=== PATIENT | female | born 1940 | race Caucasian/White ===

== ENCOUNTER → 2017-01-30 | Outpatient (CLI) | payer MEDICARE, BC ==
--- NOTE | 2017-01-30 13:56 | XR ---
EXAMINATION TYPE: XR hand complete LT DATE OF EXAM: 01/30/2017 COMPARISON: NONE HISTORY: 76 year-old female left hand pain TECHNIQUE: 3 views FINDINGS: Severe degenerative changes at the first CMC joint with joint space narrowing, sclerosis, marginal sp urring, and slight radial and dorsal joint subluxation. Some slight scattered air spurring in the MP joints, particularly the second PIP joint. No marginal erosions. No acute fracture or dislocation. No soft tissue calcifications. 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 Some minimal scattered osteoarthritic javi nges within the fingers.
== END | disposition home or self-care (01) ==
LOC: RADXRMAIN 12:50
PROVIDERS: ATTEND Family Medicine
DX: M19.042 Primary osteoarthritis, left hand (principal)

== ENCOUNTER → 2017-11-06 | Outpatient (CLI) | payer MEDICARE, BC | END | disposition home or self-care (01) | LOC: RADUSWWP 13:36 | PROVIDERS: ATTEND Family Medicine | DX: I73.9 Peripheral vascular disease, unspecified (principal) | CPT/HCPCS: 93922 ==

== ENCOUNTER 2018-11-06 13:02 | Emergency (ER) | payer MEDICARE, BC ==
[2018-11-06 13:08] VITALS: TEMP 97.8
[2018-11-06] MEDS ORDERED: SODIUM CHLORIDE 0.9% 500 ML 500 ML IV STA (13:39)
--- NOTE | 2018-11-06 13:43 | ED ---
General Adult HPI - General Chief complaint: Neuro Symptoms/Deficit Stated complaint: vision trouble Time Seen by Provider: 11/06/18 13:05 Source: patient, RN notes reviewed Mode of arrival: wheelchair Limitations: no limitations - History of Present Illness Initial comments: This is a 78-year-old female presents emergency department with past medical h istory significant for diabetes. Patient states she will DeBellis at about 9:30 slightly feeling normal. Patient states she woke up at about 4:00 this morning and had double vision. Patient did not check to see if there is any facial droop at the time however she woke up later and continue to have some double vision as well as some drooping of the left upper eyelid. Patient denies any speech disturbance. Patient denies any other facial disturbance. Patient states her puzzlsna-gb-zof thought the left side of her face was also a little droopy but the patient denies this. Patient denies any weakness or numbness in any of the extremities. Patient denies any coordination breath. Patient denies any difficulty walking. Patient does complain of a posterior headache - Related Data Home Medications Medication Instructions Recorded Confirmed Ramipril [Altace] 2.5 mg PO DAILY 07/07/15 11/06/18 Simvastatin [Zocor] 20 mg PO DAILY 07/07/15 11/06/18 Insulin Glargine,Hum.rec.anlog 40 unit SQ DAILY 11/06/18 11/06/18 [Basaglar Kwikpen U-100] Allergies Allergy/AdvReac Type Severity Reaction Status Date / Time No Known Allergies Allergy Verified 11/06/18 13:42 Review of Systems ROS Statement: Those systems with pertinent positive or pertinent negative responses have been documented in the HPI. ROS Other: All systems not noted in ROS Statement are negative. Past Medical History Past Medical History: Diabetes Mellitus, Hypertension Additional Past Medical History / Comment(s): rosacea History of Any Multi-Drug Resistant Organisms: None Reported Past Surgical History: Adenoidectomy, Tonsillectomy Additional Past Surgical History / Comment(s): cataract Past Psychological History: No Psychological Hx Reported Smoking Status: Never smoker Past Alcohol Use History: None Reported Past Drug Use History: None Reported General Exam - General Exam Comments Initial Comments: GENERAL: Patient is well-developed and well-nourished. Patient is nontoxic and well- hydrated and is in no acute distress. ENT: Neck is soft and supple. No significant lymphadenopathy is noted. Oropharynx is clear. Moist mucous membranes. Neck has full range of motion without eliciting any pain. EYES: The sclera were anicteric and conjunctiva were pink and moist. Extraocular movements were intact and pupils were equal round and reactive to light. Eyelids were unremarkable. PULMONARY: Unlabored respirations. Good breath sounds bilaterally. No audible rales rhonchi or wheezing was noted. CARDIOVASCULAR: There is a regular rate and rhythm without any murmurs gallops or rubs. ABDOMEN: Soft and nontender with normal bowel sounds. No palpable organomegaly was noted. There is no palpable pulsatile mass. SKIN: Skin is clear with no lesions or rashes and otherwise unremarkable. NEUROLOGIC: Patient is alert and oriented x3. Patient has some drooping of the left upper eyelid otherwise there is no other notable weakness on the face. Patient sensation of the face is normal.. Motor and sensory are also intact. Normal speech, volume and content. Symmetrical smile. Cerebellar testing bilateral finger to nose is normal. MUSCULOSKELETAL: Normal extremities with adequate strength and full range of motion. No lower extremity swelling or edema. No calf tenderness. LYMPHATICS: No significant lymphadenopathy is noted PSYCHIATRIC: Normal psychiatric evaluation. Limitations: no limitations Course Vital Signs 11/06/18 13:04 Temperature 97.8 F Pulse Rate 92 Respiratory 18 Rate Blood Pressure 189/84 O2 Sat by Pulse 100 Oximetry Medical Decision Making - Medical Decision Making EKG shows normal sinus rhythm at 71 bpm MI interval 244 QRS is 96 QT interval 422 QTC is 458. Patient's EKG shows no ST segment elevation or depression or T wave abnormalities are noted. CT of the brain shows no acute abnormality. Patient continues to drooping of the left upper eyelid as well as double vision. I spoke with [facility] and they accepted the transfer - Lab Data Result diagrams: 11/06/18 14:10 11/06/18 14:10 Lab Results 11/06/18 11/06/18 11/06/18 Range/Units 14:10 14:10 14:10 WBC 6.0 (3.8-10.6) k/uL RBC 4.35 (3.80-5.40) m/uL Hgb 12.1 (11.4-16.0) gm/dL Hct 35.7 (34.0-46.0) % MCV 82.1 (80.0-100.0) fL MCH 27.8 (25.0-35.0) pg MCHC 33.8 (31.0-37.0) g/dL RDW 14.4 (11.5-15.5) % Plt Count 292 (150-450) k/uL Neutrophils % 61 % Lymphocytes % 30 % Monocytes % 5 % Eosinophils % 3 % Basophils % 0 % Neutrophils # 3.7 (1.3-7.7) k/uL Lymphocytes # 1.8 (1.0-4.8) k/uL Monocytes # 0.3 (0-1.0) k/uL Eosinophils # 0.2 (0-0.7) k/uL Basophils # 0.0 (0-0.2) k/uL PT 10.3 (9.0-12.0) sec INR 1.0 (<1.2) APTT 25.6 (22.0-30.0) sec Sodium 141 (137-145) mmol/L Potassium 4.3 (3.5-5.1) mmol/L Chloride 108 H (98-107) mmol/L Carbon Dioxide 28 (22-30) mmol/L Anion Gap 5 mmol/L BUN 17 (7-17) mg/dL Creatinine 0.68 (0.52-1.04) mg/dL Est GFR (CKD-EPI)AfAm >90 (>60 ml/min/1.73 sqM) Est GFR (CKD-EPI)NonAf 85 (>60 ml/min/1.73 sqM) Glucose 64 L (74-99) mg/dL Calcium 9.4 (8.4-10.2) mg/dL Total Bilirubin 0.4 (0.2-1.3) mg/dL AST 17 (14-36) U/L ALT 24 (9-52) U/L Alkaline Phosphatase 69 (38-126) U/L Troponin I (0.000-0.034) ng/mL Total Protein 5.9 L (6.3-8.2) g/dL Albumin 3.5 (3.5-5.0) g/dL 11/06/18 Range/Units 14:10 WBC (3.8-10.6) k/uL RBC (3.80-5.40) m/uL Hgb (11.4-16.0) gm/dL Hct (34.0-46.0) % MCV (80.0-100.0) fL MCH (25.0-35.0) pg MCHC (31.0-37.0) g/dL RDW (11.5-15.5) % Plt Count (150-450) k/uL Neutrophils % % Lymphocytes % % Monocytes % % Eosinophils % % Basophils % % Neutrophils # (1.3-7.7) k/uL Lymphocytes # (1.0-4.8) k/uL Monocytes # (0-1.0) k/uL Eosinophils # (0-0.7) k/uL Basophils # (0-0.2) k/uL PT (9.0-12.0) sec INR (<1.2) APTT (22.0-30.0) sec Sodium (137-145) mmol/L Potassium (3.5-5.1) mmol/L Chloride (98-107) mmol/L Carbon Dioxide (22-30) mmol/L Anion Gap mmol/L BUN (7-17) mg/dL Creatinine (0.52-1.04) mg/dL Est GFR (CKD-EPI)AfAm (>60 ml/min/1.73 sqM) Est GFR (CKD-EPI)NonAf (>60 ml/min/1.73 sqM) Glucose (74-99) mg/dL Calcium (8.4-10.2) mg/dL Total Bilirubin (0.2-1.3) mg/dL AST (14-36) U/L ALT (9-52) U/L Alkaline Phosphatase (38-126) U/L Troponin I <0.012 (0.000-0.034) ng/mL Total Protein (6.3-8.2) g/dL Albumin (3.5-5.0) g/dL Disposition Clinical Impression: Cerebrovascular accident Disposition: OTHER INSTITUTION NOT DEFINED Referrals: Bubba Johansen DO [Primary Care Provider] - 1-2 days Time of Disposition: 15:30 - Out of Hospital Transfer - Req. Specs Out of Hospital Transfer - Requested Specifics: Other Emergency Center ([facility])
[2018-11-06 14:34] LABS: Basophils % (A) 0 %; Eosinophils # (A) 0.2 k/uL (0-0.7); Eosinophils % (A) 3 %; HCT 35.7 % (34.0-46.0); HGB 12.1 gm/dL (11.4-16.0); Lymphocytes # (A) 1.8 k/uL (1.0-4.8); Lymphocytes % (A) 30 %; MCH 27.8 pg (25.0-35.0); MCHC 33.8 g/dL (31.0-37.0); MCV 82.1 fL (80.0-100.0); Mean Platelet Volume 6.9; Monocytes # (A) 0.3 k/uL (0-1.0); Monocytes % (A) 5 %; Neutrophils # (A) 3.7 k/uL (1.3-7.7); Neutrophils % (A) 61 %; Platelet Count 292 k/uL (150-450); RBC 4.35 m/uL (3.80-5.40); RDW 14.4 % (11.5-15.5)
[2018-11-06 14:47] LABS: Partial Thromboplastin Time 25.6 sec (22.0-30.0); Prothrombin Time 10.3 sec (9.0-12.0)
--- NOTE | 2018-11-06 14:50 | CT ---
EXAMINATION TYPE: CT brain wo con for TPA DATE OF EXAM: 11/06/2018 COMPARISON: None INDICATION: Neuro deficits, vision trouble, drooped eyelid DLP: 1068.4 mGycm, Automated exposure control for dose reduction was used. CONTRAST: None CT of the brain is performed utilizing 3 mm thick sections through the posterior fossa and 3 mm thick sections through the remaining calvarium. Study is performed within 24 hours of arrival to the hosp ital. No abnormal hyperdensity is present to suggest an acute intracranial hemorrhage. No mass lesion is evident. Punctate density in the right basal ganglion may be some physiologic basal ganglion calcification. No edema is adjacent. No acute infarcts are evident. Ventricles and sulci are appropriate for the patient age. Paranasal sinuses and mastoid air cells within the fvgvo-ul-gfdz are clear. IMPRESSIONS: 1. No suspicious acute intracranial process.
[2018-11-06 14:53] LABS: ALT 24 U/L (9-52); AST 17 U/L (14-36); Albumin 3.5 g/dL (3.5-5.0); Alkaline Phosphatase 69 U/L (38-126); Anion Gap 5 mmol/L; Blood Urea Nitrogen 17 mg/dL (7-17); Calcium 9.4 mg/dL (8.4-10.2); Carbon Dioxide 28 mmol/L (22-30); Chloride 108 mmol/L (98-107); Glucose 64 mg/dL (74-99); Potassium 4.3 mmol/L (3.5-5.1); Sodium 141 mmol/L (137-145); Total Bilirubin 0.4 mg/dL (0.2-1.3); Total Protein 5.9 g/dL (6.3-8.2)
--- NOTE | 2018-11-06 15:06 | XR ---
EXAMINATION TYPE: XR chest 2V DATE OF EXAM: 11/06/2018 COMPARISON: NONE TECHNIQUE: PA and lateral views submitted. HISTORY: Altered mental status FINDINGS: The lungs are clear and there is no pneumothorax, pleural effusion, or focal pneumonia. No overt fa ilure. IMPRESSION: 1. No acute process.
[2018-11-06 15:43] LABS: Glucose,Whole Blood 44 mg/dL (75-99)
[2018-11-06] MEDS ORDERED: hydrALAZINE HCL 20 MG/ML 1 ML VIAL IVP STA ×2 (16:03→16:25)
[2018-11-06 16:19] LABS: Glucose,Whole Blood 74 mg/dL (75-99)
[2018-11-06 16:36] VITALS: BP 191/98; PULSE 85; RESP 20
== END 2018-11-06 16:40 | disposition other institution (70) ==
LOC: EC 13:02
DX: I63.9 Cerebral infarction, unspecified (principal); R29.701 NIHSS score 1; I10 Essential (primary) hypertension; E11.9 Type 2 diabetes mellitus without complications; Z79.4 Long term (current) use of insulin; Z79.899 Other long term (current) drug therapy
CPT/HCPCS: 36415; 93005; 80053; 84484; 85025; 85610; 85730; 71046; 70450; 99285; 96374; 96361; J0360

== ENCOUNTER → 2018-11-13 | Outpatient (CLI) | payer MEDICARE, BC ==
--- NOTE | 2018-11-15 09:55 | MM ---
Reason for exam: screening (asymptomatic). Last mammogram was performed 1 year and 8 months ago. History: Patient is postmenopausal. Family history of breast cancer in sister at age 64. Physical Findings: A clinical breast exam by your physician is recommended on an annual basis and results should be correlated with mammographic findings. MG 3D Screening Mammo W/Cad Bilateral CC and MLO view(s) were taken. Prior study comparison: March 07, 2017, mammogram. April 15, 2015, mammogram. February 03, 2009, bilateral digital screening mammogram. March 24, 2003, left breast diagnostic mammogram. There are scattered fibroglandular densities. Finding: There is an equal density (isodense), oval mass in the lower inner quadrant of the left breast on MLO view. New finding since March 07, 2017 and April 15, 2015. ASSESSMENT: Incomplete: need additional imaging evaluation, BI-RAD 0 RECOMMENDATION: Special view mammogram of the left breast. If lesion persists on supplemental views, image directed ultrasound is recommended. [facility] will attempt to contact patient to return for supplemental views and ultrasound if indicated.
== END | disposition home or self-care (01) ==
LOC: RADMAMWWP 12:39
PROVIDERS: ATTEND Family Medicine
DX: Z12.31 Encounter for screening mammogram for malignant neoplasm of breast (principal)
CPT/HCPCS: 77063; 77067

== ENCOUNTER → 2018-11-19 | Outpatient (CLI) | payer MEDICARE, BC ==
--- NOTE | 2018-11-20 21:44 | MR ---
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 3-D hcwi-wz-nasahp imaging is performed. Source images are reviewed on the computer in the axi al plane. Reconstructed images rotating on the computer are reviewed. FINDINGS: The internal carotid arteries bifurcate normally into A1 and M1 segments. The A2 segments are normal. Middle cerebral artery branches are normal. Ophthalmic arteries as visualized are unrem arkable Anterior communicating artery is patent. The right posterior communicating artery is patent. The left posterior communicating artery is patent. There appears to be a small focal stenosis within the mid left posterior communicating artery. Example series 201 image 77. Series 204 image 11. Vertebrobasilar arteries within the vxeem-cj-jqmv are normal. Right vertebral artery is dominant. P osterior cerebral vasculature is normal. No suspicious aneurysm or aneurysmal dilatation is evident. No obstructions are identified. No significant flow-limiting stenosis is evident. IMPRESSIONS: 1. [place] of [place] is within normal limits. Incidental findings discussed above.
--- NOTE | 2018-11-20 21:47 | MR ---
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 TECHNIQUE: Multiplanar, multiecho imaging on a 3.0 Angela magnet is performed through the brain. Stud y is performed within 24 hours of arrival to the hospital. The craniovertebral junction is normal. The pituitary is normal. Diffusion-weighted imaging is performed. No abnormal hyperintensity is present to suggest an acute i ntracranial infarct or acute ischemic change. There are some hypointense areas within the bilateral b solomon ganglion corresponding to areas of microvascular ischemic type changes on the T2 and inversion r ecovery weighted sequences. These would be old changes. There are couple of subcortical white matter changes scattered through the right parietal lobe. Some mild periventricular white matter hypodensity is present likely on the basis of chronic white matter ischemic changes. The temporal lobes appear symmetrical. There is some subtle hyperintensity on the inversion recovery weighted sequence within the left aspec t of the brainstem near the base of the cerebral peduncles likely is some chronic white matter change . Ventricles and sulci are appropriate for the patient age. IMPRESSIONS: 1. Scattered white matter changes, likely on the basis of chronic white matter changes.
== END | disposition home or self-care (01) ==
LOC: RADMRIMAIN 11:49
PROVIDERS: ATTEND Psychiatry & Neurology Neurology
DX: G46.3 Brain stem stroke syndrome (principal)
CPT/HCPCS: 70544; 70551

== ENCOUNTER → 2018-11-20 | Outpatient (CLI) | payer MEDICARE, BC ==
--- NOTE | 2018-11-20 14:33 | MM ---
Reason for exam: additional evaluation requested from abnormal screening. Last mammogram was performed less than 1 month ago. History: Patient is postmenopausal. Family history of breast cancer in sister at age 64. Physical Findings: Nurse did not find any significant physical abnormalities on exam. MG 3D Work Up W/Cad LT LM view(s) were taken of the left breast. Prior study comparison: November 13, 2018, bilateral MG 3d screening mammo w/cad. March 07, 2017, mammogram. There are scattered fibroglandular densities. Focal asymmetry correlates with superficial finding, likely sebaceous cyst. These results were verbally communicated with the patient and result sheet given to the patient on 11/20/18. ASSESSMENT: Benign, BI-RAD 2 RECOMMENDATION: Return to routine screening mammogram schedule for both breasts. Manage on a clinical basis with regard to suspected sebaceous cyst.
== END ==
LOC: RADMAMWWP 13:36
PROVIDERS: ATTEND Family Medicine
DX: Z12.31 Encounter for screening mammogram for malignant neoplasm of breast (principal); R92.8 Other abnormal and inconclusive findings on diagnostic imaging of breast
CPT/HCPCS: 77065; G0279; 77061

== ENCOUNTER → 2018-11-30 | Outpatient (CLI) | payer MEDICARE, BC ==
[2018-11-30 09:09] LABS: Basophils % (A) 1 %; Eosinophils # (A) 0.2 k/uL (0-0.7); Eosinophils % (A) 4 %; HCT 39.2 % (34.0-46.0); HGB 12.8 gm/dL (11.4-16.0); Lymphocytes # (A) 1.6 k/uL (1.0-4.8); Lymphocytes % (A) 31 %; MCH 28.3 pg (25.0-35.0); MCHC 32.6 g/dL (31.0-37.0); MCV 86.8 fL (80.0-100.0); Mean Platelet Volume 6.5; Monocytes # (A) 0.3 k/uL (0-1.0); Monocytes % (A) 5 %; Neutrophils % (A) 58 %; Platelet Count 277 k/uL (150-450); RBC 4.51 m/uL (3.80-5.40); RDW 14.1 % (11.5-15.5); WBC 5.2 k/uL (3.8-10.6)
[2018-11-30 09:27] LABS: Potassium 4.9 mmol/L (3.5-5.1)
== END | disposition home or self-care (01) ==
LOC: LABPAT 08:45
PROVIDERS: ATTEND Obstetrics & Gynecology
DX: Z01.812 Encounter for preprocedural laboratory examination (principal); I10 Essential (primary) hypertension; N81.4 Uterovaginal prolapse, unspecified; E11.9 Type 2 diabetes mellitus without complications
CPT/HCPCS: 80051; 82565; 84520; 85025; 87086

== ENCOUNTER 2018-12-10 05:50 | Day surgery (SDC) | payer MEDICARE, BC ==
--- NOTE | 2018-12-09 18:35 | HP ---
HISTORY AND PHYSICAL DATE OF SURGERY: 12/10/2018 This is a 78-year-old white female, 2, para 2-0-0-2, who presented with a complaint of "something is hanging down" for several years, worsening over the past several months. Patient again has noticed occasional scant blood when wiping. She is not sexually active. There is no bowel or bladder issue reported. She at times has to splint the bulge away to adequately empty the bladder or bowels. She is not taking hormone replacement therapy. She denies vasomotor symptoms, no additional GASFITTER symptoms. Review of systems is otherwise negative. PAST MEDICAL HISTORY: Significant for diabetes and hypertension. PAST SURGICAL HISTORY: Eye surgery in 1998, tonsillectomy in 1957. CURRENT MEDICATIONS: 1. Basaglar KwikPen insulin subcutaneously per prescriber instruction. 2. Ramipril 2.5 mg oral capsules once daily. 3. Simvastatin 20 mg in the evening. ALLERGIES: NONE KNOWN. FAMILY HISTORY: Significant for diabetes in the patient's father and sister. REPRODUCTIVE HISTORY: Normal spontaneous vaginal deliveries x2, both unremarkable. SOCIAL HISTORY: Significant for 2 cups of coffee daily, former tobacco smoker, quit in 1988. Patient is . PHYSICAL EXAMINATION: This is a pleasant white female who is 5 feet 5 inches, 195 pounds, BMI 32, blood pressure 130/64. HEENT exam reveals good dentition, no thyromegaly, no cervical lymphadenopathy. The breast exam reveals the breasts to be bilaterally symmetric to inspection, mobile, with no skin changes, nipple discharge, axillary adenopathy or discernible lesions or masses. CHEST: Clear to auscultate auscultation in all moyer anteriorly and posteriorly. Cardiac exam reveals regular rate and rhythm with no murmur, click or rub. ABDOMEN: Soft and nontender. No organosplenomegaly, no CVA tenderness. Extremities reveal reasonably good peripheral pulses, no edema, good range of motion. External genitalia is age-appropriate. No unusual discharge, odor or bleeding. There is a grade 4 uterine prolapse noted with Valsalva, a small grade 2-3 cystocele and a possible small grade 1 rectocele. Uterus is mobile, firm, symmetric, small. Adnexa are negative bilaterally. Rectal exam reveals no rectal masses, no hemorrhoids, good sphincter tone, FIT-negative stool. IMPRESSION: Increasingly symptomatic uterine prolapse and cystocele, possible small rectocele. PLAN: I have discussed with the patient options of surgical repair versus pessary use versus continued observation. The ACOG pamphlet on pelvic organ prolapse was also given to the patient and she has thoroughly reviewed this information. All risks and benefits of surgery have been discussed, and patient would like to proceed with surgical correction via vaginal hysterectomy and cystocele repair, possible small rectocele repair. Possible bilateral salpingo-oophorectomy is also discussed, but the plan would be to leave the ovaries in situ if they were within normal limits to inspection. Perforation of bowel, bladder, ureters, bleeding, infection, anesthetic risks have all been discussed in detail, including aspiration, nerve damage or even . Patient has been offered a second opinion, and this she has declined. MMODL / IJN: [id number] /
[~2018-12-10 05:50] MED LIST: HYDROmorphone 0.5 MG/0.5 ML SYRINGE IVP PRN; ONDANSETRON 4 MG/2 ML VIAL IVP ONE; ceFAZolin IN SWFI 2 GM/20 ML SYRINGE IVP ONE
[2018-12-10 06:22] LABS: Glucose,Whole Blood 142 mg/dL (75-99)
[2018-12-10] MEDS: LACTATED RINGERS 1,000 ML IV SCH ×2 (06:22→12:59)
[2018-12-10] MEDS: MIDAZOLAM (PF) 2 MG/2 ML VIAL IV PRN ×2 (06:41→06:47)
[2018-12-10] MEDS ORDERED: fentaNYL (PF) 50 MCG/ML 2 ML AMP INTRATHECA ONE (06:41)
[2018-12-10] MEDS ORDERED: PROPOFOL 10 MG/ML 20 ML VIAL IV ONE (07:30)
[2018-12-10] MEDS ORDERED: GLYCOPYRROLATE 0.2 MG/ML 2 ML VIAL ONE (07:30)
[2018-12-10] MEDS ORDERED: SUCCINYLCHOLINE CHLORIDE 100 MG/5 ML SYR IV ONE (07:30)
[2018-12-10] MEDS ORDERED: KETOROLAC 30 MG/ML 1 ML VIAL ONE (07:30)
[2018-12-10] MEDS ORDERED: MIDAZOLAM 2 MG/2 ML VIAL ONE (07:30)
[2018-12-10] MEDS ORDERED: LIDOCAINE 1% INJ 10MG/ML (20 ML MDV) ONE (07:30)
[2018-12-10] MEDS ORDERED: MORPHINE SULFATE (PF) 0.3 MG/0.3 ML SYR ONE (07:30)
[2018-12-10] MEDS ORDERED: DEXAMETHASONE SOD PHOS (MDV) 100 MG/10 ML VIAL ONE (07:30)
[2018-12-10] MEDS ORDERED: KETOROLAC 30 MG/ML 1 ML VIAL IVP PRN (07:45)
[2018-12-10] MEDS ORDERED: diphenhydrAMINE 50 MG/ML 1 ML VIAL IVP PRN ×2 (07:45→09:19)
[2018-12-10] MEDS ORDERED: MORPHINE SULFATE 2 MG/ML SYRINGE IVP PRN (07:45)
[2018-12-10] MEDS ORDERED: NALOXONE 0.4 MG/ML 1 ML VIAL IV PRN (07:45)
[2018-12-10] MEDS ORDERED: ONDANSETRON 4 MG/2 ML VIAL IVP PRN ×2 (07:45→09:19)
[2018-12-10] MEDS ORDERED: VASOPRESSIN 20 UNIT/ML 1 ML VIAL SQ ONE (07:51)
[2018-12-10] MEDS ORDERED: LACTATED RINGERS 1,000 ML IV ONE (08:19)
[2018-12-10] MEDS ORDERED: BACITRACIN 500 UNIT/GM OINT 28.4 GM TUBE TOPICAL ONE ×2 (08:20→08:42)
--- NOTE | 2018-12-10 09:18 | P.OP ---
Date of Procedure: 12/10/18 Preoperative Diagnosis: Symptomatic grade 4 uterine prolapse, grade 3-4 cystocele, possible rectocele Postoperative Diagnosis: Same, grade 3 rectocele, normal-appearing ovaries bilaterally Procedure(s) Performed: Vaginal hysterectomy, anterior and posterior colporrhaphy's Anesthesia: GETA Surgeon: Sho Brown Child Care Leader #1: Annalee Adams Estimated Blood Loss (ml): 25 IV fluids (ml): 900 Urine output (ml): 300 Pathology: other (Cervix and uterus) Condition: stable Disposition: PACU Description of Procedure: Patient is brought to the operating suite after a spinal with Duramorph is placed. She's put in the dorsal lithotomy position, general anesthetic is given. Antibiotics are given. Sequential stockings are placed. The appropriate timeout is performed to assure the proper patient and procedural identification. Antibiotics are given. The cervix, vagina, and perineal bodies are all prepped and draped in usual sterile fashion. The bladder is drained for approximately 300 mL of clear yellow urine. The weighted speculum was placed into the vagina. The cervix is grasped with a double-tooth tenaculum. It is injected circumferentially with a dilute Pitressin solution. A ke[place]aw blade s calpel is used to incise the mucosa circumferentially with a V positioning at 6:00. A sponge is used to sweep the mucosa from the underlying fascial plane. Peritoneum is entered at 6:00 with Metzenbaum scissors and suture tied with 2-0 Vicryl suture, held with a hemostat. The large weighted speculum is then placed into the peritoneal cavity. Mucosa is at all times swept far from the operative field to avoid bladder and/or ureteral injury. Kali clamp was used across the right uterosacral cardinal ligament, this was clamped cut and held with a hemostat. The same procedure is carried out contralaterally. Uterine vasculature is identified, clamped cut and suture ligated. 2 additional pedicles are taken superior to the vessels. Again, mucosa of the bladder is at all times well mobilized to avoid injury. The anterior peritoneum was entered at 12:00. Kali clamps are used across the final pedicles and the cervix and uterus are removed and sent to pathology for evaluation. 0 Vicryl sutures used to tie the pedicles with a Claire stitch, they are flashed, and retied, for excellent hemostasis. A sponge stick is used to evaluate the ovaries, they appear senescent and are left in situ. The 2-0 Vicryl suture at placed at 6:00 is brought around in a pursestring fashion to close the peritoneal body. The previously held uterosacral cardinal ligaments are now brought across to i ncorporate the opposite ligament as well as vaginal mucosa to aid in support. 2 additional [id number]-[id number] sutures of 0 Vicryl are used. The anterior most portion is held with Allis clamps. The same dilute Pitressin solution is used to inject the superior vaginal mucosa. It is undermined with a Metzenbaum scissor and open. The edges are held in a fanlike fashion with Allis clamps. A sponge rolled finger is used to sweep the underlying fascia from the overlying mucosa. 2-0 Vicryl sutures used in an interrupted portion to bring the fascial edges together thereby completely obliterating the cystocele. Metzenbaum scissors are used to trim the redundant mucosa. Whelan catheter is placed. Bladder is drained. 2-0 Vicryl sutures used in a running stitch to close the mucosa for excellent reapproximation. At this time evaluation of the rectocele is performed. Rectocele is noted to be approximately a grade 3, and decision is made to repair it. A triangular portion of tissue is removed from the perineal body. The same dilute Pitressin solution is used now on the inferior wall of the vagina. Metzenbaum scissors are used to undermine and open the mucosa to the apex of the defect. The edges of the mucosa are held in a fanlike fashion with Allis clamps. Sponge rolled finger is used to sweep the mucosa from the underlying fascial plane. 2-0 Vicryl is used in an interrupted fashion to bring the fascial edges together, thereby completely reducing the rectocele. The redundant mucosa is trimmed with Metzenbaum scissors. The mucosa is repaired in a running locking stitch of 2-0 Vicryl with an episiotomy-like closure to complete. The vagina is clean and dry, packed with one-inch iodophor gauze with basic tracing. Whelan catheter is noted to be draining clear urine. Rectal exam reveals no rectal defects or compromise. All sponge needle and enhancement counts are correct. Patient is brought back to recovery room in excellent condition with stable vital signs including 99% O2 saturation, blood pressure 136/68, pulse 55.
[2018-12-10] MEDS ORDERED: METOCLOPRAMIDE 5 MG/ML 2 ML VIAL IVP PRN (09:19)
[2018-12-10] MEDS ORDERED: IBUPROFEN 600 MG TAB PO PRN (09:19)
[2018-12-10] MEDS ORDERED: SIMETHICONE 80 MG CHEWABLE PO PRN (09:19)
[2018-12-10] MEDS ORDERED: hydrALAZINE HCL 20 MG/ML 1 ML VIAL IVP ONE (09:27)
[2018-12-10 11:16] LABS: Glucose,Whole Blood 144 mg/dL (75-99)
[2018-12-10] MEDS: INSULIN ASPART (NovoLOG) 100 UNIT/ML VIAL SQ SCH ×4 (11:22→23:57)
[2018-12-10 12:09] VITALS: BMI 32.5
[2018-12-10 15:34] LABS: Glucose,Whole Blood 256 mg/dL (75-99)
[2018-12-10 18:25] LABS: Glucose,Whole Blood 197 mg/dL (75-99)
[2018-12-10 23:43] VITALS: BP 124/92; TEMP 99.1
[2018-12-10 23:48] LABS: Glucose,Whole Blood 203 mg/dL (75-99)
[2018-12-11] MEDS: INSULIN ASPART (NovoLOG) 100 UNIT/ML VIAL SQ SCH (01:36)
[2018-12-11 04:44] VITALS: RESP 18
--- NOTE | 2018-12-11 06:48 | P.PN ---
Progress Note - Text Progress Note Date: 12/11/18 The patient is postop day 1 status post spinal morphine. The patient is without complaints. The patient denies headache, weakness, or paresthesia. The patient is ambulating with good pain control. Some pruritus noted. Spinal site is clean and dry. A/P POD #1 s/p spinal morphine - doing well
[2018-12-11 06:55] LABS: Glucose,Whole Blood 121 mg/dL (75-99)
[2018-12-11] MEDS ORDERED: INSULIN DETEMIR (LEVEMIR) 100 UNIT/ML SYR SQ SCH (07:45)
--- NOTE | 2018-12-11 07:48 | P.PN ---
Subjective Progress Note Date: 12/11/18 Principal diagnosis: Postoperative day #1 Slept well, positive flatus, no pain. Objective - Vital Signs Vital signs: Vital Signs Temp 99.1 F 12/10/18 23:38 Pulse 79 12/10/18 23:38 Resp 18 12/11/18 04:00 BP 124/92 12/10/18 23:38 Pulse Ox 93 L 12/11/18 04:00 Intake & Output 12/10/18 12/11/18 12/11/18 18:59 06:59 18:59 Intake Total 2400 Output Total 5420 230 Balance -3020 -230 Intake: IV 900 Intake, IV Titration 800 Amount Lactated Ringers 1,000 ml 800 @ 0 mls/hr IV .[facility] Rx#:[id number] Oral 700 Output: Urine 5400 230 Uretheral (Whelan) 1700 Estimated Blood Loss 20 Other: Voiding Method Indwelling Catheter Indwelling Catheter - Constitutional General appearance: Present: average body habitus, cooperative - EENT Eyes: Present: PERRLA ENT: Present: hearing grossly normal - Neck Neck: Present: normal ROM - Respiratory Respiratory: bilateral: CTA - Cardiovascular Rhythm: regular - Gastrointestinal General gastrointestinal: Present: normal bowel sounds - Integumentary Integumentary: Present: normal - Neurologic Neurologic: Present: CNII-XII intact - Musculoskeletal Musculoskeletal: Present: gait normal, strength equal bilaterally - Psychiatric Psychiatric: Present: A&O x's 3, appropriate affect, intact judgment & insight - Labs Labs: Abnormal Lab Results - Last 24 Hours (Table) 12/10/18 12/10/18 12/10/18 Range/Units 11:01 15:28 18:20 POC Glucose (mg/dL) 144 H 256 H 197 H (75-99) mg/dL 12/10/18 12/11/18 Range/Units 23:45 06:52 POC Glucose (mg/dL) 203 H 121 H (75-99) mg/dL Assessment and Plan Assessment: Doing well postoperative day #1 Plan: Vaginal packing and Whelan catheter had been removed. Diet has been advanced, long acting insulin given this morning. Patient will shower, we will measure her voided and postvoid residual. Plan is for likely discharge home later today. She will follow-up with me in the office in 2 weeks. I have reviewed with her postoperative care. No intercourse, tampons or douching. No heavy lifting. Minimal stairclimbing. Advil or Aleve as needed for pain. Follow-up with me in the office in 2 weeks, call for appointment. Call with any vaginal bleeding, difficulties with urination or defecation, or with any pain not alleviated by [id number] products. Time with Patient: Less than 30
--- NOTE | 2018-12-11 07:52 | P.DS ---
Providers Date of admission: 12/10/18 Expected date of discharge: 12/11/18 Attending physician: Sho Brown Primary care physician: [facility] Course: This is a 78-year-old white female 2 para 2001 who presented with in creasingly symptomatic vaginal prolapse, grade 4 uterine prolapse and grade 3-4 cystocele. Please see my dictated history and physical for details. Patient was admitted, received a spinal with Duramorph, and underwent vaginal hysterectomy, anterior and posterior colporrhaphy's yesterday. She did well intraoperatively, vaginal packing placed along with Whelan catheter. Ovaries appeared normal and were therefore left in situ. Please see my dictated operative note for details. This morning the patient is doing well. Whelan catheter and vaginal packing had been removed. She is passing flatus, and ambulating without difficulty. We are awaiting first void for measurement and residual. Patient's long-acting insulin has been given this morning, and she is eating breakfast. Blood sugar will be checked after breakfast as per routine recommended by Dr. Johansen. Abdomen is soft and nontender. Extremities are negative for edema. There is no CVA tenderness. Chest is clear in all moyer. Patient is likely to be discharged home later today. She is in very good condition for discharge home. She will follow-up with me in the office in 2 weeks, discharge instructions have been reviewed in detail. Patient Condition at Discharge: Good Plan - Discharge Summary Discharge Rx Participant: No New Discharge Prescriptions: No Action Ramipril [Altace] 2.5 mg PO QAM Simvastatin [Zocor] 20 mg PO QAM Insulin Glargine,Hum.rec.anlog [Basaglar Kwikpen U-100] 40 unit SQ QAM Discharge Medication List Ramipril [Altace] 2.5 mg PO QAM 07/07/15 [History] Simvastatin [Zocor] 20 mg PO QAM 07/07/15 [History] Insulin Glargine,Hum.rec.anlog [Basaglar Kwikpen U-100] 40 unit SQ QAM 11/06/18 [History] Follow up Appointment(s)/Referral(s): Sho Brown MD [STAFF PHYSICIAN] - 2 Weeks
[2018-12-11 09:02] VITALS: PULSE 94
== END 2018-12-11 14:50 | disposition home or self-care (01) ==
LOC: OR 05:50 → 4FBP 09:11 → OR 12-11 14:50
PROVIDERS: ATTEND Obstetrics & Gynecology
DX: N81.3 Complete uterovaginal prolapse (principal); D25.2 Subserosal leiomyoma of uterus; I70.90 Unspecified atherosclerosis; I10 Essential (primary) hypertension; E11.9 Type 2 diabetes mellitus without complications; Z79.4 Long term (current) use of insulin; Z83.3 Family history of diabetes mellitus; Z87.891 Personal history of nicotine dependence; Z79.899 Other long term (current) drug therapy
CPT/HCPCS: 86900; 86901; 86850; 88307; 36415; 57260; 58260; J2250 ×2; J0360; J1200; J2765; J2405; J2001; J2274; J3010; J1885; J1100; J0330; J2704; J0690

== ENCOUNTER → 2019-10-13 | Outpatient (CLI) | payer MEDICARE, BC ==
--- NOTE | 2019-10-13 14:56 | XR ---
EXAMINATION TYPE: XR chest 2V DATE OF EXAM: 10/13/2019 COMPARISON: 11/06/2018 HISTORY: Cough and congestion TECHNIQUE: Frontal and lateral views of the chest are obtained. FINDINGS: There is no focal air space opacity, pleural effusion, or pneumothorax seen. The cardiac silhouette size is within normal limits. The osseous structures are intact. Mild multilevel degener ative change of the spine. IMPRESSION: No acute cardiopulmonary process.
== END | disposition home or self-care (01) ==
LOC: RADXRMAIN 13:32
PROVIDERS: ATTEND Family Medicine
DX: R05 Cough (principal)
CPT/HCPCS: 71046

== ENCOUNTER → 2025-01-23 | Outpatient (CLI) | payer BC, MEDICARE ==
--- NOTE | 2025-01-23 12:05 | XR ---
EXAMINATION TYPE: XR Hip Complete LT DATE OF EXAM: 01/23/2025 11:53 AM COMPARISON: None CLINICAL INDICATION: Female, 84 years old with history of M25.552 Left hip pain; PHH, pain TECHNIQUE: XR Hip Complete LT; Frontal and lateral views FINDINGS: No evidence for acute process, joint dislocation or significant soft tissue swelling. Osteo phyte formation of the superior acetabulum of the hip. There is severe joint space narrowing. IMPRESSION: 1. No evidence for acute process. 2. Moderate to severe hip osteoarthrosis. [facility], , 01/23/2025 12:03 PM
== END | disposition home or self-care (01) ==
LOC: RADXRMAIN 11:27
PROVIDERS: ATTEND Internal Medicine
DX: M16.12 Unilateral primary osteoarthritis, left hip (principal)
CPT/HCPCS: 73502